=== PATIENT | female | born 1975 | race Two or more races ===

== ENCOUNTER → 2018-07-29 | Outpatient (CLI) | payer OTHER ==
[2018-07-30 09:02] LABS: Hepatitis B Surface Antibody Positive
[2018-07-30 10:15] LABS: Hepatitis B Surface Antigen Negative (Negative)
== END | disposition home or self-care (01) ==
LOC: LAB 14:03
PROVIDERS: ATTEND Nurse Practitioner
DX: Z15.89 Genetic susceptibility to other disease (principal)
CPT/HCPCS: 36415; 86703; 86706; 86803; 87340

== ENCOUNTER 2020-06-07 14:22 | Emergency (ER) | payer OTHER ==
[~2020-06-07] VITALS: Ht 157.5 cm; Wt 45.4 kg
[2020-06-07 14:38] VITALS: BP 156/89
[2020-06-07] MEDS ORDERED: TETANUS-DIPTH-ACEL PERTUSSIS 0.5ML SYR Tdap IM ONE ×2 (17:36→17:45)
[2020-06-08 12:53] LABS: Hepatitis B Surface Antibody Positive
[2020-06-08 16:22] LABS: Hepatitis B Surface Antigen Negative (Negative)
== END 2020-06-07 17:49 | disposition home or self-care (01) ==
LOC: ER 14:22
DX: S61.239A Puncture wound without foreign body of unspecified finger without damage to nail, initial encounter (principal); X58.XXXA Exposure to other specified factors, initial encounter; Y99.0 Civilian activity done for income or pay; Y92.89 Other specified places as the place of occurrence of the external cause
CPT/HCPCS: 36415; 86703; 86706; 86803; 87340; 90471; 90715